=== PATIENT | male | born 1980 | race Caucasian/White ===

== ENCOUNTER 2016-10-26 07:16 | Day surgery (SDC) | payer BC ==
[~2016-10-26 07:16] MED LIST: Buffered Lidocaine 1% SYR 3ML* 3 ML/SYR SYRINGE INTRADERM ONE; Famotidine IV* 10 MG/ML 2 ML (20 mg) IV ONE
[2016-10-26] MEDS ORDERED: Bupivacaine 0.5% W/EPI SDV* 30 ML VIAL ONE (07:25)
[2016-10-26] MEDS ORDERED: Lidocaine 1% INJ* 10 MG/ML 30 ML SDV ONE (07:26)
[2016-10-26] MEDS ORDERED: Famotidine IV* 10 MG/ML 2 ML (20 mg) ONE (07:41)
[2016-10-26] MEDS ORDERED: ceFAZolin 1 GM in Dextrose (*) 0 GM/0 ML BAG IVPB ONE (07:41)
[2016-10-26] MEDS ORDERED: Ketorolac INJ* 30 MG/ML 1 ML VIAL ONE ×2 (07:41→08:13)
[2016-10-26] MEDS ORDERED: ceFAZolin 2 GM PREMIX (*) 0 GM/0 ML BAG IVPB ONE (07:42)
[2016-10-26] MEDS ORDERED: Midazolam* 1 MG/ML 5 ML VIAL (5 MG) ONE (08:13)
[2016-10-26] MEDS ORDERED: Ondansetron INJ* 2 MG/ML VIAL ONE (08:13)
[2016-10-26] MEDS ORDERED: Lidocaine 2% PF * 5 ML VIAL ONE (08:13)
[2016-10-26] MEDS ORDERED: fentaNYL* 50 MCG/ML 2 ML VIAL (100 MCG VIAL) ONE (08:13)
[2016-10-26] MEDS ORDERED: Dexamethasone IV* 4 MG/ML 1 ML (4 MG) ONE (08:13)
[2016-10-26] MEDS ORDERED: Propofol* 10 MG/ML 20 ML BTL IV PUSH ONE (08:13)
[2016-10-26] MEDS ORDERED: ceFAZolin 1 GM in Dextrose (*) 1 GM/50 ML BAG IVPB ONE (09:16)
[2016-10-26] MEDS ORDERED: KETAMINE HCL* 50 MG/ML 10 ML VIAL ONE (09:16)
[2016-10-26] MEDS ORDERED: ceFAZolin 2 GM PREMIX (*) 2 GM/50 ML BAG IVPB ONE (09:16)
[2016-10-26] MEDS ORDERED: Midazolam* 1 MG/ML 2 ML VIAL (2 MG) ONE ×3 (09:19→10:01)
[2016-10-26] MEDS ORDERED: Glycopyrrolate IV* 0.2 MG/ML 1 ML VIAL ONE (09:32)
[2016-10-26] MEDS ORDERED: oxyCODONE/Acetamin 5/325 MG* TAB PO PRN (09:48)
[2016-10-26] MEDS ORDERED: Acetaminophen TAB* 325 MG PO PRN (09:48)
[2016-10-26] MEDS ORDERED: DiMENhydriNATE IV* 50 MG/ML VIAL IV PUSH PRN (09:48)
[2016-10-26] MEDS ORDERED: oxyCODONE/Acetamin 5/325 MG* TAB ONE (10:52)
[2016-10-26 10:59] VITALS: BP 156/92
[2016-10-26] MEDS ORDERED: Labetalol IV* 5 MG/ML 20 ML VIAL IV PUSH ONE (14:00)
--- NOTE | 2016-10-27 01:25 | OP ---
DATE OF OPERATION: 10/26/16 - [facility] DATE OF : 76 SURGEON: Dr. Carlson. SUPERVISOR [employer]: ANDREA Goodman ANESTHESIOLOGIST: Dr. Gibbs. ANESTHESIA: LMAC. PRE-OP DIAGNOSIS: Umbilical hernia. POST-OP DIAGNOSIS: Umbilical hernia. OPERATIVE PROCEDURE: Open umbilical hernia repair with mesh. DESCRIPTION OF PROCEDURE: The patient was supine on the operative room table. After adequate intravenous sedation compression stockings, Jose Miguel Hugger warmer, and intravenous antibiotics, the abdomen was prepped with antiseptic, draped in a sterile fashion. Local infiltrative anesthesia was administered. Infraumbilical curvilinear incision was created. Hernia was dissected free and reduced. The fascial defect was about 3 cm across. The preperitoneal plain was developed and an 8 cm Ventralex patch was put as an underlay, it was sutured in 8 places around the circumference and the fascia was closed over top with 0 Polysorb. The umbilical skin was tacked back down and adipose closed with 3-0 Polysorb followed by 5-0 Polysorb for the skin. Dressing was placed, he tolerated the procedure well, was brought to recovery in good condition, there were no complications. No drains. No pathologic specimens. Sponge and instrument counts correct. Estimated blood loss10 mL. CC: Dr. Carlson; Dr. Siddharth Menchaca * [id number]/[facility] #: [id number] [facility]
== END 2016-10-26 11:18 | disposition home or self-care (01) ==
LOC: OR 07:16
PROVIDERS: ATTEND Surgery
DX: K42.9 Umbilical hernia without obstruction or gangrene (principal); I10 Essential (primary) hypertension; J45.909 Unspecified asthma, uncomplicated; E66.01 Morbid (severe) obesity due to excess calories
CPT/HCPCS: A9270-GY; C1781; J0690; J1100; J1885; J2250; J2405; J2704; J3010

== ENCOUNTER 2016-12-20 18:49 | Emergency (ER) | payer BC ==
[2016-12-20 21:02] VITALS: BP 126/84
== END 2016-12-20 21:42 | disposition left against medical advice (07) ==
LOC: ED 18:49
DX: R11.2 Nausea with vomiting, unspecified (principal); Z53.21 Procedure and treatment not carried out due to patient leaving prior to being seen by health care provider

== ENCOUNTER 2018-09-14 21:39 | Emergency (ER) | payer BC ==
[2018-09-14] MEDS ORDERED: NS 0.9% 1000 ML*IV.FLUID IV ONE (22:10)
[2018-09-14] MEDS ORDERED: Acetaminophen TAB* 325 MG PO ONE (22:16)
[2018-09-14] MEDS ORDERED: Ibuprofen TAB* 800 MG PO ONE (22:16)
--- NOTE | 2018-09-14 22:44 | ED ---
Influenza-Like Illness - HPI Summary HPI Summary: 38 year old male presents with fever for the past 2 days. He admits occasional cough. He was generalized abdominal pain. No nausea vomiting or diarrhea. Denies any chest pain. He admits to sore throat and headache. Denies any neck stiffness. Friend is sick with strep throat. He has had a normal appetite. He has been taking secr-lme-epwthes cold medications for his fever. no medical conditions. - History of Current Complaint Chief Complaint: EDFluSymptoms Time Seen by Provider: 09/14/18 22:07 - Allergy/Home Medications Allergies/Adverse Reactions: Allergies Allergy/AdvReac Type Severity Reaction Status Date / Time MS Latex [Latex] Allergy POSSIBLE Verified 10/12/16 12:48 ALLERGY Home Medications: Home Medications Finasteride TAB* [Proscar TAB*] 0.5 tab PO DAILY 09/14/18 [History Confirmed 01/26] Lisinopril 1 tab PO DAILY 09/14/18 [History Confirmed 09/14/18] PMH/Surg Hx/FS Hx/Imm Hx Endocrine/Hematology History: Denies: Hx Anticoagulant Therapy Respiratory History: Reports: Hx Asthma - CAUSED BY CHEMICALS GI History: Reports: Hx Ulcer - ??POSSIBLE IN THE PAST History: Reports: Other Problems/Disorders - SLIGHT "FILTER ISSUE"- STATES HAD SOME PROTEIN IN URINE Musculoskeletal History: Reports: Hx Arthritis - FORMED A RESULT OF THE LYMME DISEASE- STATES IS IN REMISSION, Other Musculoskeletal History - Obesity Sensory History: Denies: Hx Contacts or Glasses, Hx Hearing Aid Opthamlomology History: Denies: Hx Contacts or Glasses Psychiatric History: Reports: Hx Anxiety - NO MEDICATION FOR AT THIS TIME Infectious Disease History: No Infectious Disease History: Denies: Traveled Outside the [place] in Last 30 Days - Family History Known Family History: Positive: Hypertension - Social History Alcohol Use: Rare Substance Use Type: Reports: None Smoking Status (MU): Never Smoked Tobacco Review of Systems Positive: Fever Positive: Sore Throat, Nasal Discharge Negative: Chest Pain Positive: Cough. Negative: Shortness Of Breath Positive: Abdominal Pain. Negative: Vomiting, Diarrhea, Nausea All Other Systems Reviewed And Are Negative: Yes Physical Exam Triage Information Reviewed: Yes Vital Signs On Initial Exam: Initial Vitals Temp Pulse Resp BP Pulse Ox 104 F 128 18 149/89 100 09/14/18 21:48 09/14/18 21:48 09/14/18 21:48 09/14/18 21:48 09/14/18 21:48 Vital Signs Reviewed: Yes Appearance: Positive: Ill-Appearing Skin: Positive: Warm, Dry Head/Face: Positive: Normal Head/Face Inspection Eyes: Positive: Normal, EOMI, TERRENCE, Conjunctiva Clear ENT: Positive: Pharyngeal erythema, TMs normal, Uvula midline, Other - soft palate symmetric. Negative: Tonsillar swelling, Tonsillar exudate Neck: Positive: Supple, Nontender, No Lymphadenopathy. Negative: Nuchal Rigidity Respiratory/Lung Sounds: Positive: Clear to Auscultation, Breath Sounds Present Cardiovascular: Positive: Normal, RRR Abdomen Description: Positive: Soft, Other: - mild diffuse tenderness Bowel Sounds: Positive: Present Musculoskeletal: Positive: Normal Neurological: Positive: Normal Psychiatric: Positive: Normal Diagnostics - Vital Signs Vital Signs Temp Pulse Resp BP Pulse Ox 09/14/18 21:48 104 F 128 18 149/89 100 - Laboratory Result Diagrams: 09/14/18 23:50 09/14/18 23:50 Lab Statement: Any lab studies that have been ordered have been reviewed, and results considered in the medical decision making process. - Radiology chest Radiology Interpretation Completed By: ED Physician Summary of Radiographic Findings: normal Re-Evaluation - Re-Evaluation First Eval Re-Evaluation Time: 00:30 Change: Improved Comment: feeling better after fluids Flu Symptom Course/Dx - Course Course Of Treatment: 38 year old male presents with fever for the past 2 days. He admits occasional cough. He was generalized abdominal pain. No nausea vomiting or diarrhea. Denies any chest pain. He admits to sore throat and headache. Denies any neck stiffness. Friend is sick with strep throat. He has had a normal appetite. He has been taking zcxn-[id number] cold medications for his fever. On exam patient appears ill. Lungs clear to auscultation. Pharynx erythematous. Uvula midline. Soft palate symmetric. Mild generalized abdominal pain. Flu a is positive. wbc normal. Electrolytes sodium low but gave fluids. Gave fluids Tylenol ibuprofen and patient feeling better. Had symptoms greater than 48 hours so out of range for Tamiflu. Told to continue Tylenol ibuprofen. Patient understands agrees with plan. - Diagnoses Differential Diagnosis/HQI/PQRI: Positive: Influenza, Pneumonia, Upper Respiratory Infection Provider Diagnoses: Influenza A Discharge - Sign-Out/Discharge Documenting (check all that apply): Patient Departure - Discharge Plan Condition: Good Disposition: HOME Patient Education Materials: Influenza (ED) Forms: *Work Release Referrals: Siddharth Menchaca MD [Primary Care Provider] - Additional Instructions: take Tylenol or ibuprofen every 6 hours for fever Use saline rinses in nose for nasal congestion Can use cough drops or products such as cloraseptic spray for sore throat Return to ED if develop any new or worsening symptoms - Billing Disposition and Condition Condition: GOOD Disposition: Home
[2018-09-14 23:58] LABS: ABS Basophils 0 10^3/ul (0-0.2); ABS Eosinophils 0 10^3/ul (0-0.6); ABS Monocytes 1.2 10^3/ul (0-0.8); ABS Neutrophils 4.9 10^3/ul (1.5-7.7); ABS Nucleated RBC 0 10^3/ul; Eosinophil % 0.1 %; Hematocrit 40 % (42-52); Hemoglobin 13.6 g/dl (14.0-18.0); Lymphocyte % 13.5 %; Mean Corpuscular HGB Conc 34 g/dl (31-36); Mean Corpuscular Hemoglobin 30 pg (27-31); Mean Corpuscular Volume 89 fL (80-94); Mean Platelet Volume 6.6 fL (7.4-10.4); Nucleated Red Blood Cells % 0; Platelet Count 379 10^3/ul (150-450); Red Blood Count 4.52 10^6/ul (4.00-5.40); Red Cell Distribution Width 14 % (10.5-15); White Blood Count 7.1 10^3/ul (3.5-10.8)
[2018-09-15 00:20] LABS: Albumin 3.8 g/dL (3.2-5.2); Albumin/Globulin Ratio 1.3 (1-3); BUN/Creatinine Ratio 12.4 (8-20); C Reactive Protein 38.91 mg/L (<8.01); Calcium 8.2 mg/dL (8.6-10.3); EGFR Non-African American 85.7 (>60); Globulin 2.9 g/dL (2-4); Potassium 3.7 mmol/L (3.5-5.0); Total Bilirubin 0.6 mg/dL (0.2-1.0); Total Protein 6.7 g/dL (6.4-8.9)
[2018-09-15 00:41] VITALS: BP 136/74
== END 2018-09-15 00:40 | disposition home or self-care (01) ==
LOC: ED 21:39
DX: J11.1 Influenza due to unidentified influenza virus with other respiratory manifestations (principal); R50.9 Fever, unspecified; J02.9 Acute pharyngitis, unspecified; R05 Cough; R10.9 Unspecified abdominal pain
CPT/HCPCS: 36415; 71046; 80053; 83605; 85025; 86140; 87040; 87651; 99282; A9270-GY